=== PATIENT | male | born 1980 | race Caucasian/White ===

== ENCOUNTER 2020-03-06 12:09 | Emergency (ER) | payer BC ==
[2020-03-06] MEDS ORDERED: Sodium Chloride 0.9% 10 ML Syringe FLUSH PRN (12:20)
--- NOTE | 2020-03-06 12:39 | EDM.PDOC ---
ED HPI GENERAL MEDICAL PROBLEM - General Chief Complaint: Chest Pain Stated Complaint: CHEST PAIN Time Seen by Provider: 03/06/20 12:20 Source of Information: Reports: Patient, RN Notes Reviewed History Limitations: Reports: No Limitations - History of Present Illness INITIAL COMMENTS - FREE TEXT/NARRATIVE: Patient is a 39-year-old male who presents to the ED for further evaluation of his left-sided chest pain. The patient notes that on February 25, he went to try to donate blood, and was turned away as his blood pressure was too high. He states that he made an appointment with Nina Farrell, March 04, for evaluation of his high blood pressure, states that he had an EKG and a chest x- ray done, but was not started on any medications for said blood pressure. Patient does have an outpatient stress test ordered, and notes this to be sometime in April. The patient states that today however he was driving back from [place], as he went for his pain management visit, and developed some sharp stabbing pain to his left mid chest, he notes that it radiates slightly up into his jaw. Patient self denies any shortness of breath, diaphoresis, nausea with this. He states that the pain does not travel into his left arm. He does not note any sort of trauma, or lifting anything heavier than he normally would. Patient notes a family history of extensive cardiac disease, notes a maternal grandfather with 4 MIs, and 2 pacemaker placements and his father with a stent, and medications for blood pressure and heart rate control. Patient states he is not a smoker, but does use alcohol on a daily basis. Chest Pain Score (Numeric/FACES): 6 - Related Data Allergies Allergy/AdvReac Type Severity Reaction Status Date / Time No Known Allergies Allergy Verified 03/06/20 12:24 Home Meds: Home Meds Dexlansoprazole [Dexilant] 60 mg PO DAILY 09/11/14 [History] Multivitamin [Multi-Vitamin Daily] 1 tab PO DAILY 09/11/14 [History] Acetaminophen [Tylenol] 650 mg PO Q4H PRN #100 tablet 09/12/14 [Rx] Ibuprofen [Motrin] 400 mg PO Q6H PRN #100 tablet 09/12/14 [Rx] Cyclobenzaprine [Flexeril] 10 mg PO ASDIRECTED 03/06/20 [History] Escitalopram [Lexapro] 20 mg PO DAILY 03/06/20 [History] Lisinopril [Zestril] 10 mg PO BEDTIME 03/06/20 [History] Past Medical History Gastrointestinal History: Reports: GERD Musculoskeletal History: Reports: Back Pain, Chronic, Other (See Below) Other Musculoskeletal History: narrowing of spinal canal, degenerative of lumbar discs - Past Surgical History GI Surgical History: Reports: Cholecystectomy Male Surgical History: Reports: Vasectomy Social & Family History - Tobacco Use Smoking Status *Q: Never Smoker Second Hand Smoke Exposure: No - Caffeine Use Caffeine Use: Reports: None - Alcohol Use Alcohol Use History: Yes Alcohol Use Frequency: Daily - Recreational Drug Use Recreational Drug Use: No ED ROS GENERAL - Review of Systems Review Of Systems: Comprehensive ROS is negative, except as noted in HPI. ED EXAM, GENERAL - Physical Exam Exam: See Below Exam Limited By: No Limitations General Appearance: Alert, WD/WN, No Apparent Distress Eye Exam: Bilateral Eye: Normal Inspection Ears: Normal External Exam Nose: Normal Inspection Throat/Mouth: Normal Inspection, Normal Lips, Normal Teeth, Normal Gums, Normal Oropharynx, Normal Voice, No Airway Compromise Head: Atraumatic, Normocephalic Neck: Normal Inspection Respiratory/Chest: No Respiratory Distress, Lungs Clear, Normal Breath Sounds, No Accessory Muscle Use, Other (mild chest tenderness to L anterior chest around 3-4th rib, does not reproduce his pain, but is tender) Cardiovascular: Normal Peripheral Pulses, Regular Rate, Rhythm, No Edema, No Murmur Peripheral Pulses: 3+: Radial (L), Radial (R) GI/Abdominal: Normal Bowel Sounds, Soft, Non-Tender, No Distention, No Mass Extremities: Normal Inspection, Normal Capillary Refill Neurological: Alert, Oriented, Normal Cognition, No Motor/Sensory Deficits Psychiatric: Normal Affect, Normal Mood, Anxious (mildly) Skin Exam: Warm, Dry, Intact, Normal Color, No Rash EKG INTERPRETATION EKG Date: 03/06/20 Time: 12:15 Rhythm: NSR Rate (Beats/Min): 72 Presto: Normal P-Wave: Present QRS: Normal ST-T: Normal QT: Normal Comparison: NA - No Prior EKG EKG Interpretation Comments: no acute ischemic change noted. Reviewed by myself and Dr. Phillips. Course - Vital Signs Last Recorded V/S: Last Vital Signs Temp 98.0 F 03/06/20 14:05 Pulse 74 03/06/20 14:05 Resp 18 03/06/20 14:05 BP 100/85 03/06/20 14:05 Pulse Ox 96 03/06/20 14:05 - Orders/Labs/Meds Orders: Active Orders 24 hr Category Date Time Status EKG Documentation Completion [RC] STAT Care 03/06/20 12:20 Active Peripheral IV Care [RC] . DIRECTED Care 03/06/20 12:21 Active Peripheral IV Insertion Adult [OM.PC] Urgent Oth 03/06/20 12:20 Ordered Labs: Laboratory Tests 03/06/20 03/06/20 03/06/20 Range/Units 12:50 12:50 12:50 WBC 5.62 (4.23-9.07) K/mm3 RBC 4.83 (4.63-6.08) M/mm3 Hgb 14.6 (13.7-17.5) gm/dl Hct 44.3 (40.1-51.0) % MCV 91.7 (79.0-92.2) fl MCH 30.2 (25.7-32.2) pg MCHC 33.0 (32.2-35.5) g/dl RDW Std Deviation 43.8 (35.1-43.9) fL Plt Count 349 H (163-337) K/mm3 MPV 8.6 L (9.4-12.3) fl Neutrophils % (Manual) 61 H (40-60) % Band Neutrophils % 0 (0-10) % Lymphocytes % (Manual) 28 (20-40) % Atypical Lymphs % 0 % Monocytes % (Manual) 9 (2-10) % Eosinophils % (Manual) 2 (0.8-7.0) % Basophils % (Manual) 0 L (0.2-1.2) Platelet Estimate Adequate RBC Morph Comment Normal PT 10.7 (9.7-12.0) SECONDS INR 0.98 APTT 29 (22-31) SECONDS Sodium 139 (136-145) mEq/L Potassium 4.2 (3.5-5.1) mEq/L Chloride 104 (98-107) mEq/L Carbon Dioxide 23 (21-32) mEq/L Anion Gap 16.2 H (5-15) BUN 10 (7-18) mg/dL Creatinine 1.0 (0.7-1.3) mg/dL Est Cr Clr Drug Dosing 103.54 mL/min Estimated GFR (MDRD) > 60 (>60) mL/min BUN/Creatinine Ratio 10.0 L (14-18) Glucose 112 H (74-106) mg/dL Calcium 9.6 (8.5-10.1) mg/dL Magnesium 2.2 (1.8-2.4) mg/dl Total Bilirubin 0.5 (0.2-1.0) mg/dL AST 41 H (15-37) U/L ALT 97 H (16-63) U/L Alkaline Phosphatase 89 (46-116) U/L Troponin I < 0.017 (0.00-0.056) ng/mL NT-Pro-B Natriuret Pep (0-125) pg/mL Total Protein 7.7 (6.4-8.2) g/dl Albumin 4.2 (3.4-5.0) g/dl Globulin 3.5 gm/dL Albumin/Globulin Ratio 1.2 (1-2) 03/06/20 Range/Units 12:50 WBC (4.23-9.07) K/mm3 RBC (4.63-6.08) M/mm3 Hgb (13.7-17.5) gm/dl Hct (40.1-51.0) % MCV (79.0-92.2) fl MCH (25.7-32.2) pg MCHC (32.2-35.5) g/dl RDW Std Deviation (35.1-43.9) fL Plt Count (163-337) K/mm3 MPV (9.4-12.3) fl Neutrophils % (Manual) (40-60) % Band Neutrophils % (0-10) % Lymphocytes % (Manual) (20-40) % Atypical Lymphs % % Monocytes % (Manual) (2-10) % Eosinophils % (Manual) (0.8-7.0) % Basophils % (Manual) (0.2-1.2) Platelet Estimate RBC Morph Comment PT (9.7-12.0) SECONDS INR APTT (22-31) SECONDS Sodium (136-145) mEq/L Potassium (3.5-5.1) mEq/L Chloride (98-107) mEq/L Carbon Dioxide (21-32) mEq/L Anion Gap (5-15) BUN (7-18) mg/dL Creatinine (0.7-1.3) mg/dL Est Cr Clr Drug Dosing mL/min Estimated GFR (MDRD) (>60) mL/min BUN/Creatinine Ratio (14-18) Glucose (74-106) mg/dL Calcium (8.5-10.1) mg/dL Magnesium (1.8-2.4) mg/dl Total Bilirubin (0.2-1.0) mg/dL AST (15-37) U/L ALT (16-63) U/L Alkaline Phosphatase (46-116) U/L Troponin I (0.00-0.056) ng/mL NT-Pro-B Natriuret Pep < 5 (0-125) pg/mL Total Protein (6.4-8.2) g/dl Albumin (3.4-5.0) g/dl Globulin gm/dL Albumin/Globulin Ratio (1-2) Meds: Medications Discontinued Medications Generic Name Dose Route Start Last Admin Trade Name Freq PRN Reason Stop Dose Admin Sodium Chloride 10 ml 03/06/20 12:20 03/06/20 12:50 Saline Flush FLUSH 10 ml ASDIRECTED PRN Administration Keep Vein Open - Re-Assessments/Exams Free Text/Narrative Re-Assessment/Exam: 03/06/20 12:40 Patient presents to the ED for his sudden onset left chest pain. EKG was obtained at time of triage, there is no acute ischemic changes noted. Other labs will be obtained, and another chest x-ray will be performed for further evaluation. 03/06/20 13:36 Patient's laboratory evaluation was done, and demonstrates no focal abnormalities. Chest x-ray is also within normal limits. Will discharge patient home with general recommendations. It is likely that his chest pain could have been anxiety induced, as he states he has been under a lot of stress about his health lately. Departure - Departure Time of Disposition: 13:36 Disposition: Home, Self-Care 01 Condition: Good Clinical Impression: Left-sided chest pain Instructions: Nonspecific Chest Pain, Adult, [id number] Referrals: Brissa Farrell PA-C [Primary Care Provider] - Forms: ED Department Discharge Additional Instructions: You were seen in the ER today regarding your left-sided chest pain. Your work-up in the ER today demonstrates no sign of a heart attack, or other cardiac cause. Your chest x-ray was also within normal limits as were your labs. Recommend you keep your stress test appointment, you might want to think about moving the appointment up, so that is not all the way into April. Please continue to keep track of your blood pressures at home, in a journal or diary to make sure that these are trending within normal limits. Please follow-up with your primary care physician as needed. Please return to the ER at any time if symptoms change or worsen. Sepsis Event Note - Evaluation Sepsis Screening Result: No Definite Risk - Focused Exam Vital Signs: Vital Signs Temp Pulse Resp BP Pulse Ox 03/06/20 14:05 98.0 F 74 18 100/85 96 03/06/20 12:18 97.7 F 72 18 141/96 H 97 Date Exam was Performed: 03/06/20 Time Exam was Performed: 22:28 - My Orders Last 24 Hours: My Active Orders 03/06/20 12:20 EKG Documentation Completion [RC] STAT Peripheral IV Insertion Adult [OM.PC] Urgent 03/06/20 12:21 Peripheral IV Care [RC] . DIRECTED - Assessment/Plan Last 24 Hours: My Active Orders 03/06/20 12:20 EKG Documentation Completion [RC] STAT Peripheral IV Insertion Adult [OM.PC] Urgent 03/06/20 12:21 Peripheral IV Care [RC] . DIRECTED
--- NOTE | 2020-03-06 13:17 | CR ---
Chest: PA and lateral views of the chest were obtained. Comparison: Prior chest x-ray of 03/04/20. Heart size and mediastinum are normal. Lungs are clear with no acute parenchymal change. Bony structures are unremarkable. Impression: 1. Nothing acute is appreciated on 2 view chest x-ray. Diagnostic code #1 Study was dictated in MDT
[2020-03-06 14:10] VITALS: BP 100/85; PULSE 74
== END 2020-03-06 14:05 | disposition home or self-care (01) ==
LOC: JD.ED 12:09
DX: R07.9 Chest pain, unspecified (principal); K21.9 Gastro-esophageal reflux disease without esophagitis; Z79.899 Other long term (current) drug therapy
CPT/HCPCS: 36415; 71046; 71046-26; 80053; 83735; 83880; 84484; 85007; 85027; 85610; 85730; 93005; 93010; 99283; 99285-25

== ENCOUNTER 2023-03-15 19:01 | Emergency (ER) | payer BC ==
[2023-03-15] MEDS ORDERED: Sodium Chloride 0.9% 10 ML Syringe FLUSH PRN (19:14)
[2023-03-15 19:15] VITALS: BP 169/105; PULSE 74
[2023-03-15] MEDS ORDERED: Ketorolac 30 MG/ML SDV IVPUSH ONE (20:19)
[2023-03-15] MEDS ORDERED: Ketorolac 30 MG/ML SDV ONE (20:26)
== END 2023-03-15 22:00 | disposition home or self-care (01) ==
LOC: JD.ED 19:01
DX: R07.9 Chest pain, unspecified (principal); Z95.0 Presence of cardiac pacemaker
CPT/HCPCS: 36415; 71045; 80053; 83735; 83880; 84484; 85025; 85379; 85610; 85730; 93005; 96374; 99285; J1885; J3490; 93010; 99284

== ENCOUNTER 2024-10-10 07:47 | Day surgery (SDC) | payer BC ==
[~2024-10-10 07:47] MED LIST: Lidocaine 1% 5 ML VIAL ONE; Midazolam 1 MG/ML 2 ML SDV ONE; Propofol 200 MG/20 ML SDV ONE; fentaNYL 100 MCG/2 ML SDV ONE
[2024-10-10 10:42] VITALS: BP 110/68; PULSE 70
[2024-10-10] MEDS ORDERED: Sodium Chloride 0.9% 10 ML Syringe FLUSH PRN (10:42)
[2024-10-10] MEDS ORDERED: Lactated Ringers 1,000 ML IV SCH (10:45)
[2024-10-10] MEDS ORDERED: Sodium Chloride 0.9% 10 ML Syringe FLUSH SCH (21:00)
== END 2024-10-10 10:39 | disposition home or self-care (01) ==
LOC: JD.SDS 07:47
PROVIDERS: ATTEND Surgery
DX: Z12.11 Encounter for screening for malignant neoplasm of colon (principal); K29.50 Unspecified chronic gastritis without bleeding; K31.89 Other diseases of stomach and duodenum; K63.5 Polyp of colon; K62.1 Rectal polyp; K21.9 Gastro-esophageal reflux disease without esophagitis; K44.9 Diaphragmatic hernia without obstruction or gangrene; I10 Essential (primary) hypertension; Z88.8 Allergy status to other drugs, medicaments and biological substances; Z79.899 Other long term (current) drug therapy; Z87.891 Personal history of nicotine dependence
CPT/HCPCS: 43239; 45380; J2250; J2704; J3010; 00813; J3490